=== PATIENT | male | born 1955 | race Hispanic/Latino ===

== ENCOUNTER 2022-05-29 20:22 | Emergency (ER) | payer BC | END 2022-05-29 20:57 | disposition home or self-care (01) | LOC: ERS 20:22 | DX: S31.119A Laceration without foreign body of abdominal wall, unspecified quadrant without penetration into peritoneal cavity, initial encounter (principal); I10 Essential (primary) hypertension; E78.5 Hyperlipidemia, unspecified; Z53.31 Laparoscopic surgical procedure converted to open procedure | CPT/HCPCS: 12001 ==